=== PATIENT | female | born 1945 ===

== ENCOUNTER 2023-09-04 12:00 | Emergency (ER) | payer MEDICARE, SELFPAY ==
--- NOTE | ~2023-09-04 | CT_ITS ---
EXAMINATION: CT HEAD W/O IV CONTRAST CT CERVICAL SPINE W/O IV CONTRAST CLINICAL INFORMATION: History of fall, pain. COMPARISON: None TECHNIQUE: Head - Contiguous axial imaging of the head was performed from the skull base to the vertex without the administration of intravenous contrast, and axial images are reconstructed at 2 mm and 5 mm slice thickness. Cervical spine - A volumetric, helical CT acquisition of the cervical spine was obtained without contrast; in addition to the standard set of axial images, multiplanar reformatted images were provided in the coronal and sagittal imaging planes. This CT examination was performed using dose optimization techniques as appropriate, variously including the following: *Automated exposure control *Adjustment of mA and/or kV according to patient size (this includes techniques or standardized protocols for targeted exams where dose is matched to indication/reason for exam; i.e. extremities or head) *Use of iterative reconstruction technique DLP: 894 mGy-cm (total) FINDINGS: HEAD: There is atherosclerotic calcification of cavernous carotid arteries. The leslie-white matter differentiation is maintained. No evidence of an acute major vascular territory infarction. No intracranial hemorrhage, extra-axial surface collection, focal mass effect or midline shift. There are multiple old lacunar infarcts involving the gangliocapsular regions and left thalamus. The patchy hypoattenuation within the supratentorial white matter is compatible with sequela of chronic moderate microangiopathy. There is mild parenchymal volume loss with commensurate prominence of ventricles and sulci. No hydrocephalus. No acute abnormalities in the posterior fossa. The cerebellar tonsils are in normal position. The calvarium is intact. A mucus retention cyst is present in the left maxillary sinus. No air-fluid levels within paranasal sinuses. The mastoid air cells are well aerated. The orbits and temporomandibular joints are unremarkable. CERVICAL SPINE: The craniocervical junction is intact. The occipital condyles, dens and atlantodental articulation are intact. There is calcium deposition (likely calcium pyrophosphate dihydrate crystal deposition) along the transverse ligament posterior to the dens. The vertebral body heights and alignment are maintained. No fractures in the anterior or posterior elements. No prevertebral soft tissue edema or hematoma. Multilevel facet arthropathy as well as degenerative narrowing of disc spaces, traction osteophyte formation and uncovertebral joint hypertrophy of the cervical spine. The posterior disc-osteophyte complexes appear to cause [id number] spinal canal stenosis at C3-C4 and mild canal stenosis at C4-C5 and C5-C6. There are varying degrees of multilevel neural foraminal stenosis, although appears to be worst on the left at C3-C4. Thyroid gland is slightly heterogeneous and likely has a few nodules including a nodule of 1.5 cm AP dimension in the right thyroid lobe. Thyroid ultrasound follow-up is recommended. No acute abnormalities at the lung apices. CT/CT cervical spine wo IV con IMPRESSION: * No intracranial hemorrhage or other acute intracranial pathology. * Chronic small vessel ischemic changes of the supratentorial white matter and old lacunar infarcts in gangliocapsular regions and left thalamus. No evidence of an acute major vascular territory infarction. * No fracture or malalignment in the extensively degenerated cervical spine. * A 1.5 cm nodule is detected in the right thyroid lobe. Recommend routine thyroid ultrasound follow-up for further characterization.
[2023-09-04 12:04] VITALS: BP 124/88; BP 159/75; PULSE 75; PULSE 88; RESP 18; TEMP 36.7; O2SAT 95; O2SAT 97; BMI 32.8
[2023-09-04 12:10] VITALS: BP 159/75; PULSE 75; RESP 18; TEMP 36.7; O2SAT 97
--- NOTE | 2023-09-04 12:13 | PC.NURSE ---
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
--- NOTE | 2023-09-04 12:15 | ECG_ITS ---
Test Reason : FALL Blood Pressure : / mmHG Vent. Rate : 072 BPM Atrial Rate : 072 BPM P-R Int : 132 ms QRS Dur : 072 ms QT Int : 442 ms P-R-T Axes : 032 -23 004 degrees QTc Int : 483 ms Normal sinus rhythm Inferior infarct , age undetermined Anterolateral infarct , age undetermined Abnormal ECG No previous ECGs available Referred By: Tania Fuentes Electronically Signed By:HILARIO LEDEZMA MD
[2023-09-04 12:29] LABS: MANUAL DIFF FLAG NO
[2023-09-04 12:36] LABS: INTERNATIONAL NORM RATIO 1.1 (0.9-1.1); Prothrombin Time 12.8 SEC (11.1-13.3)
[2023-09-04 12:39] LABS: Basophils Absolute Auto 0.1 X10*3/uL (0.0-0.2); Basophils Percent Auto 1.2 % (0-2); Eosinophils Absolute Auto 0.2 X10*3/uL (0.0-0.4); Eosinophils Percent Auto 3.8 % (0-4); Hemoglobin 9.1 g/dl (12.0-16.0); Imm Gran Abs Auto 0.02 X10*3/uL (0.00-0.03); Imm Gran Pct Auto 0.5 % (0.0-0.4); Lymphocytes Absolute Auto 0.7 X10*3/uL (1.2-4.9); Lymphocytes Percent Auto 16.7 % (20-40); Mean Corpuscular HGB Conc 32.5 g/dl (31.0-35.0); Mean Corpuscular Hemoglobin 29.2 pg (27.0-33.0); Mean Corpuscular Volume 89.7 fL (80.0-98.0); Mean Platelet Volume 11.5 fL (9.4-12.3); Monocytes Absolute Auto 0.3 X10*3/uL (0.1-1.2); Monocytes Percent Auto 7.9 % (2-11); Neutrophils Absolute Auto 2.9 x10*3/uL (2.0-8.3); Neutrophils Percent Auto 69.9 % (45-73); Partial Thromboplastin Time 27.2 SEC (26.0-36.8); Red Blood Count 3.12 X10*6/uL (4.20-5.50); Red Cell Distribution Width 13.9 % (11.0-16.0); White Blood Count 4.2 X10*3/uL (4.8-10.8)
[2023-09-04 12:41] LABS: Platelet Count 70 X10*3/uL (160-400)
[2023-09-04 12:46] LABS: Alanine Aminotransferase 7 U/L (0-31); Albumin Level 2.9 g/dL (3.5-5.0); Alkaline Phosphatase 40 U/L (39-117); Anion Gap 18 (12-20); Aspartate Amino Transferase 16 U/L (5-31); Bilirubin Total 0.6 mg/dL (0.0-1.0); Blood Urea Nitrogen 29 mg/dL (9-16); Calcium 8.3 mg/dL (8.4-10.2); Carbon Dioxide 24 mmol/L (22-29); Chloride 105 mmol/L (96-108); Creatinine Clr Calc Pharmacy 16.9; Estimated Glomerular Filt Rate 18; Glucose Random 92 mg/dL (60-115); Magnesium 1.7 mg/dL (1.6-2.6); Potassium 3.6 mmol/L (3.3-5.1); Sodium 143 mmol/L (135-145)
--- NOTE | 2023-09-04 12:52 | ED.FALL ---
HPI - Fall General Chief Complaint: Fall Stated Complaint: DIZZY,FALL,ON FLOOR 50 MIN,L RM LAC,FROM CHRISTOPHER,+THIN Time Seen by Provider: 09/04/23 12:48 Source: patient Mode of arrival: EMS Limitations: no limitations History of Present Illness ED Provider: espinoza LAMBERT Narrative: Patient came from assisted living apparently got up from the chair at around 04:00 felt lightheaded and fell hitting her left forearm with a table found herself on the floor denies any headache or neck pain patient has been falling very often this is the 3rd fall in last 2 weeks was admitted [facility] 1 week ago for ascites workup still in progress no chest pain no palpitation patient's on torsemide and plavix patient does have history of liver cancer workup in progress at [facility] Related Data Allergies Allergy/AdvReac Type Severity Reaction Status Date / Time Sulfa (Sulfonamide Allergy Unknown Verified 09/04/23 12:07 Antibiotics) Review of Systems Review of Systems: Yes all other systems are reviewed and are negative [facility] Past Medical History Medical History (Updated 09/04/23 @ 15:57 by Jcarlos Choi MD) Hypertension CKD stage 3a, GFR 45-59 ml/min Thrombocytopenia Heart failure with preserved ejection fraction Liver cancer Social History Social History Smoked in Last 30 Days: No Use of substances other than those prescribed or required for medical reasons: No Advance Directives: No Advance Directives Information Provided: No Do you have a plan to hurt others: No Plan Physical Exam Vital Signs: Vital Signs: Last Vital Signs Temp 97.6 F 09/04/23 16:10 Pulse 76 09/04/23 16:10 Resp 14 09/04/23 16:10 BP 123/67 09/04/23 16:10 Pulse Ox 95 09/04/23 16:10 O2 Del Method Room Air 09/04/23 16:10 BMI result Body Mass Index 32.8 Appearance: Alert. Oriented X3. No acute distress. Eyes: PERRLA, No Nystagmus ENT: Pharynx normal. Oral Mucosa moist atraumatic normocephalic Neck: Normal inspection. Neck supple. No midline tenderness CVS: Normal heart rate and rhythm. Pulses normal. Respiratory: No respiratory distress. Equal air entry bilateral, no wheezing/rales/rhonchi Abdomen: Soft and nontender. Bowel sounds are present, hepatosplenomegaly with ascites++ no CVA tenderness Skin: Skin warm and dry. Normal skin color. Normal skin turgor. Extremities: No lower extremity edema. No calf tenderness skin tear left forearm Neuro: Oriented X 3. No motor deficit. No sensory deficit.No cerebellar signs , cranial nerves II-XII intact Procedures Laceration Laceration 1: Site: upper extremity Side (If applicable): left Size (cm): 10 Description: flap Depth: simple, single layer Skin layer closed with: other (Steri-Strips) Medical Decision Making Medical Decision Making [facility] Narrative: Patient has liver cancer status post mechanical fall CT scan of the head and C-spine negative skin tear on the left forearm skin tear approximated by using Steri-Strips Differential Diagnosis Differential Diagnoses: The differential diagnosis associated with the presentation includes Lab Data [facility] Lab Attestation statement: I reviewed the patient's lab results. 09/04/23 12:23 09/04/23 12:23 Labs: Lab Results 09/04/23 Range/Units 12:23 WBC 4.2 L (4.8-10.8) X10*3/uL RBC 3.12 L (4.20-5.50) X10*6/uL Hgb 9.1 L (12.0-16.0) g/dl Hct 28.0 L (37.0-47.0) % MCV 89.7 (80.0-98.0) fL MCH 29.2 (27.0-33.0) pg MCHC 32.5 (31.0-35.0) g/dl RDW 13.9 (11.0-16.0) % Plt Count 70 L (160-400) X10*3/uL MPV 11.5 (9.4-12.3) fL Immature Gran % (Auto) 0.5 H (0.0-0.4) % Neut % (Auto) 69.9 (45-73) % Lymph % (Auto) 16.7 L (20-40) % Spencer % (Auto) 7.9 (2-11) % Eos % (Auto) 3.8 (0-4) % Baso % (Auto) 1.2 (0-2) % Lymph # (Auto) 0.7 L (1.2-4.9) X10*3/uL Spencer # (Auto) 0.3 (0.1-1.2) X10*3/uL Eos # (Auto) 0.2 (0.0-0.4) X10*3/uL Baso # (Auto) 0.1 (0.0-0.2) X10*3/uL Abs Immat Gran (auto) 0.02 (0.00-0.03) X10*3/uL Absolute Neuts (auto) 2.9 (2.0-8.3) x10*3/uL Absolute Nucleated RBC 0.000 (0.0-0.012) X10*3/uL Nucleated RBC % (auto) 0.0 (0.0-0.2) /100WBC PT 12.8 (11.1-13.3) SEC INR 1.1 (0.9-1.1) APTT 27.2 (26.0-36.8) SEC Sodium 143 (135-145) mmol/L Potassium 3.6 (3.3-5.1) mmol/L Chloride 105 (96-108) mmol/L Carbon Dioxide 24 (22-29) mmol/L Anion Gap 18 (12-20) BUN 29 H (9-16) mg/dL Creatinine 2.53 H (0.5-1.4) mg/dL Estim Creat Clear Calc 16.9 Estimated GFR 18 Random Glucose 92 (60-115) mg/dL Calcium 8.3 L (8.4-10.2) mg/dL Magnesium 1.7 (1.6-2.6) mg/dL Total Bilirubin 0.6 (0.0-1.0) mg/dL AST 16 (5-31) U/L ALT 7 (0-31) U/L Alkaline Phosphatase 40 (39-117) U/L Troponin I High Sens 43.6 H (<3.5-17.0) ng/L Total Protein 6.0 L (6.5-8.0) g/dL Albumin 2.9 L (3.5-5.0) g/dL Influenza Type A (PCR) NEGATIVE (Negative) Influenza Type B (PCR) NEGATIVE (Negative) RSV RNA Qual (PCR) NEGATIVE (Negative) SARS-CoV-2 RNA (RT-PCR) NEGATIVE (Negative) Independent Interpretation I performed an independent interpretation of an: CT Scan Interpretation: Negative C-spine and head ct Radiology Impression Discussion of test interpretation with radiology: I have reviewed the radiologist's reading. Discharge Plan Discharge Clinical Impression: Fall, Skin tear of left upper extremity, Cancer of liver Patient Disposition: Xfer Other Transfer Details: CT scan of the head and C-spine negative labs are stable reapproximated using Steri-Strips Instructions: Laceration (ED), Fall Prevention for Older Adults (ED) Additional Instructions: Care and cautions as advised Care of Steri-Strips for skin avulsion of the left forearm Print Language: Indonesian
[2023-09-04 12:53] LABS: Troponin-I High Sensitivity 43.6 ng/L (<3.5-17.0)
[2023-09-04 13:36] LABS: Influenza A PCR NEGATIVE (Negative); Influenza B PCR NEGATIVE (Negative); Resp Syncy Virus RNA Qual PCR NEGATIVE (Negative); SARS COV2 PCR INHOUSE NEGATIVE (Negative)
--- NOTE | 2023-09-04 15:38 | MHC.EDTECH ---
pt's skin tear on left lower arm was cleaned with saline and iodine, skin tear appeared to be bruised purple and blue, blood present however not actively bleeding, MD aware
[2023-09-04 16:10] VITALS: BP 123/67; PULSE 76; RESP 14; TEMP 36.4; O2SAT 95
[2023-09-04 16:53] VITALS: BP 123/67; PULSE 76; RESP 14; TEMP 36.4; O2SAT 95
== END 2023-09-04 16:53 | disposition home or self-care (01) ==
PROVIDERS: Physician Assistant Medical; Emergency Provider Internal Medicine; PCP Internal Medicine
DX: S41.112A Laceration without foreign body of left upper arm, initial encounter (principal); R42 Dizziness and giddiness; C22.8 Malignant neoplasm of liver, primary, unspecified as to type; R94.31 Abnormal electrocardiogram [ECG] [EKG]; M54.2 Cervicalgia; R51.9 Headache, unspecified; Y28.9XXA Contact with unspecified sharp object, undetermined intent, initial encounter; Y93.9 Activity, unspecified; Y92.099 Unspecified place in other non-institutional residence as the place of occurrence of the external cause; Y99.8 Other external cause status; Z79.01 Long term (current) use of anticoagulants; Z79.899 Other long term (current) drug therapy; Z03.818 Encounter for observation for suspected exposure to other biological agents ruled out
CPT/HCPCS: 0241U; 12004; 70450; 72125; 80053; 83735; 84484; 85025; 85610; 85730; 93005; 99284; 99285

== ENCOUNTER → 2023-09-04 12:15 | Outpatient (BNV) | payer MEDICARE, SELFPAY | PROVIDERS: Emergency Provider Internal Medicine; PCP Internal Medicine; Visit Provider Internal Medicine Cardiovascular Disease | DX: R94.31 Abnormal electrocardiogram [ECG] [EKG] (principal) | CPT/HCPCS: 93010 ==